=== PATIENT | male | born 1965 | race Caucasian/White ===

== ENCOUNTER 2017-10-12 10:21 | Emergency (ER) | payer BC ==
[~2017-10-12] VITALS: Ht 172.7 cm; Wt 93.3 kg
[~2017-10-12 10:21] MED LIST: AMLO-147 PO; CIPR500T4 PO; IBUP-1542 PO
[2017-10-12 10:22] VITALS: Ht 172.7 cm; Wt 93.3 kg
[2017-10-12] MEDS ORDERED: ALBUTEROL 0.083% (NEB) 2.5 MG/3 ML AMP HHN STA (10:52)
[2017-10-12] MEDS ORDERED: predniSONE 20 MG TAB PO ONE (11:00)
[2017-10-12] MEDS ORDERED: IPRATROPIUM (NEB) 0.5 MG/2.5 ML AMP HHN ONE (11:00)
--- NOTE | 2017-10-12 11:06 | RADRPT ---
PROCEDURE: XR Chest. CLINICAL INDICATION: Cough and shortness of breath. TECHNIQUE: Single frontal view. COMPARISON: None. FINDINGS: The lungs are clear. The heart size is normal. There is no pleural effusion. There is no pneumothorax. IMPRESSION: 1. Normal chest radiograph. RPTAT: QQ .Morgan Trevino MD, MD Date Time Electronically viewed and signed by .Morgan Trevino MD, MD on 10/12/2017 11:06 .R/
[2017-10-12] MEDS ORDERED: PRED20TA PO (11:58)
[2017-10-12] MEDS ORDERED: AZIT250T94 PO (11:58)
[2017-10-12] MEDS ORDERED: ALBU8.5H3 INH (11:58)
--- NOTE | 2017-10-12 12:04 | ERD ---
ER Documentation Chief Complaint Chief Complaint cough , chest congestion x 3 days HPI This 49-year-old male presents with a four-day history of productive cough, wheezing and a history of asthma. Subjective fevers but no measured temperature. Denies any chest pain, vomiting, abdominal pain. He is using his albuterol nebulizer at home without relief. ROS All systems reviewed and are negative except as per history of present illness. Medications Home Meds Active Scripts Albuterol Sulfate* (Proair HFA*) 8.5 Gm Hfa.aer.ad, 2 PUFF INH Q4, #1 INHALER Prov:REBECCA HICKEY MD 10/12/17 Prednisone* (Prednisone*) 20 Mg Tab, 40 MG PO DAILY for 4 Days, TAB Start October 13, 2017 Prov:REBECCA HICKEY MD 10/12/17 Azithromycin* (Zithromax*) 250 Mg Tablet, 250 MG PO .ZPACK DIRECTED, #6 TAB TAKE 500 MG (2 TABS) THE FIRST DAY THEN 250 MG (1 TAB) DAYS 2-5 Prov:REBECCA HICKEY MD 10/12/17 Ibuprofen* (Motrin*) 600 Mg Tab, 600 MG PO Q6, #20 TAB Prov:REBECCA HICKEY MD 08/16/16 Ciprofloxacin Hcl* (Ciprofloxacin Hcl*) 500 Mg Tablet, 500 MG PO BID for 7 Days , TAB Prov:REBECCA HICKEY MD 08/16/16 Ciprofloxacin Hcl* (Ciprofloxacin Hcl*) 500 Mg Tablet, 500 MG PO BID for UTI, Hematuria, for 10 Days, #14 TAB Prov:JADEN NELSON MD 03/24/16 Amlodipine Besylate* (Amlodipine Besylate*) 10 Mg Tablet, 10 MG PO DAILY for 60 Days, #60 TAB Prov:JADEN NELSON MD 03/24/16 Allergies Allergies: Coded Allergies: No Known Allergy (Unverified , 03/19/16) PMhx/Soc History of Surgery: No Anesthesia Reaction: No Hx Neurological Disorder: No Hx Respiratory Disorders: No Hx Cardiac Disorders: Yes (HTN) Hx Psychiatric Problems: No Hx Miscellaneous Medical Probl: Yes (DM) Hx Alcohol Use: No Hx Substance Use: No Hx Tobacco Use: No Smoking Status: Never smoker Physical Exam Vitals Vital Signs Date Time Temp Pulse Resp B/P Pulse Ox O2 Delivery O2 Flow Rate FiO2 10/12/17 11:27 100 22 94 21 10/12/17 10:22 98.2 109 18 176/78 96 Physical Exam Const: [] Alert, [id number]. Head: Atraumatic Eyes: Normal Conjunctiva ENT: Normal External Ears, Nose and Mouth. Neck: Full range of motion..~ No meningismus. Resp: Clear to auscultation bilaterally coarse breath sounds forced wheeze without significant wheeze and no rales are appreciated. No retractions. Cardio: Regular rate and rhythm, no murmurs Abd: Soft, non tender, non distended. Normal bowel sounds Skin: No petechiae or rashes Back: No midline or flank tenderness Ext: No cyanosis, or edema Neur: Awake and alert Psych: Normal Mood and Affect Results 24 hrs Laboratory Tests Test 10/12/17 11:27 Bedside Glucose 170mg/dL Current Medications Medications (Trade) Dose Ordered Sig/Jesika Route PRN Reason Start Time Stop Time Status Last Admin Dose Admin Albuterol (Proventil 0.083% (Neb)) 5 mg ONCE STAT N 10/12/17 10:52 10/12/17 10:54 DC 10/12/17 10:52 Ipratropium Paulina (Atrovent 0.02% (Neb)) 0.5 mg ONCE ONCE N 10/12/17 11:00 10/12/17 11:01 DC 10/12/17 11:00 Prednisone (Prednisone) 40 mg ONCE ONCE PO 10/12/17 11:00 10/12/17 11:01 DC 10/12/17 10:58 Procedures/MDM Chest X-ray 1V Interpreted by me: Soft Tissue: No acute abnormalities Bones: No acute abnormalities Mediastinum/Cardiac Silhouette/Lungs: [No acute abnormalities]. Impression- normal 1 view chest x-ray She presents with worsening URI symptoms and history of asthma without evidence of hypoxemia or respiratory distress. Patient is given albuterol and Atrovent treatment here. He was given prednisone 40 mg by mouth. Accu-Chek was 170. There is given prednisone 40 mg by mouth. Patient was treated with Zithromax, prednisone and continuation albuterol. Patient was counseled on risk of hyperglycemia with prednisone and encouraged to monitor blood sugar drink plenty of fluids. He is advised to follow-up with primary doctor this week return to the ER for any worsening symptoms. The patient was stable with no new complaints during the ER course. Clinically, there is no current evidence to suggest meningitis, sepsis, acute abdomen, pneumonia, acute coronary syndrome , pulmonary embolism, or any other emergent condition appearing to require further evaluation or hospitalization. The patient should certainly return for any new or worsening symptoms per the aftercare instructions. They should otherwise follow-up with her primary care doctor for reevaluation this week. Departure Diagnosis: Primary Impression: Asthma Asthma severity: unspecified severity Asthma persistence: unspecified Asthma complication type: unspecified Qualified Code: J45.909 - Asthma, unspecified asthma severity, unspecified whether complicated, unspecified whether persistent Additional Impression: Bronchitis Condition: Stable Patient Instructions: Bronchitis With Wheezing (Adult) Additional Instructions: X-ray normal. Recheck for new or worsening symptoms or primary care doctor. REBECCA HICKEY MD Oct 12, 2017 12:04
== END 2017-10-12 12:52 | disposition home or self-care (01) ==
LOC: FTE 10:21
DX: J45.909 Unspecified asthma, uncomplicated (principal); J20.9 Acute bronchitis, unspecified; I10 Essential (primary) hypertension; E11.9 Type 2 diabetes mellitus without complications
CPT/HCPCS: 71010; 82962; 94664; J7512; Z7502; Z7610

== ENCOUNTER 2018-02-26 17:49 | Inpatient (IN) | END 2018-03-01 11:08 | disposition home or self-care (01) | DRG 872 ==

== ENCOUNTER 2019-06-10 16:06 | Emergency (ER) | payer BC ==
[~2019-06-10] VITALS: Ht 172.7 cm; Wt 99.4 kg
[~2019-06-10 16:06] MED LIST changes: +ALBU2.5V3 NEB; +ALBU8.5H8 INH; +AMLO-145 PO; -AMLO-147 PO; +AMOX500C2 PO; +ASPI-817 PO; -CIPR500T4 PO; +DOXY100T2 PO; -IBUP-1542 PO; +LISI-471 PO; +METF500T PO; +PANT40TA4 PO; +SERT-165 PO; +SITA100T11 PO
[2019-06-10 16:09] VITALS: Ht 172.7 cm; Wt 99.4 kg
--- NOTE | 2019-06-10 16:46 | ERD ---
ER Documentation Chief Complaint Chief Complaint Pt sent from clinic for BS 450, pt has been out of DM meds HPI 54-year-old male sent from clinic for high blood sugar. He went to his primary care doctor's office to get his Januvia refilled. They noticed that his blood sugar was high so they sent him to the ER. Patient is completely asymptomatic. ROS All systems reviewed and are negative except as per history of present illness. Medications Home Meds Reported Medications Sertraline Hcl* (Sertraline Hcl*) 100 Mg Tablet, 100 MG PO DAILY, #30 TAB 06/10/19 Sitagliptin* (Januvia*) 100 Mg Tablet, 100 MG PO DAILY, #30 TAB 06/10/19 Aspirin* (Aspirin* EC) 81 Mg Tablet.dr, 81 MG PO DAILY, TAB 06/10/19 Discontinued Scripts Amoxicillin* (Amoxicillin*) 500 Mg Cap, 500 MG PO TID for 7 Days, CAP Prov:ANEESH ESCOBAR MD 12/08/18 Albuterol Sulfate* (Albuterol Sulfate* Neb) 0.083%-3 Ml Neb, 2.5 MG NEB Q4 PRN for SHORTNESS OF BREATH, #30 EA Prov:ANEESH ESCOBAR MD 12/08/18 Sitagliptin* (Januvia*) 100 Mg Tablet, 100 MG PO DAILY, #30 TAB 2 Refills Prov:ANEESH ESCOBAR MD 12/08/18 Sitagliptin* (Januvia*) 100 Mg Tablet, 100 MG PO DAILY, #30 TAB 2 Refills Prov:RUCHI BUCK 03/01/18 Metformin Hcl (Glucophage) 500 Mg Tablet, 500 MG PO BID WITH MEALS for 30 Days, #60 TAB 2 Refills Prov:RUCHI BUCK 03/01/18 Pantoprazole* (Pantoprazole*) 40 Mg Tablet., 40 MG PO DAILY@06 for 30 Days, #30 2 Refills Prov:RUCHI BUCK 03/01/18 Lisinopril* (Lisinopril*) 20 Mg Tablet, 20 MG PO DAILY for 30 Days, #30 TAB 2 Refills Prov:RUCHI BUCK 03/01/18 Amlodipine Besylate* (Amlodipine Besylate*) 5 Mg Tablet, 5 MG PO DAILY for 30 Days, #30 TAB 2 Refills Prov:RUCHI BUCK 03/01/18 Doxycycline* (Vibramycin*) 100 Mg Tab, 100 MG PO BID for 8 Days, #16 TAB Prov:RUCHI BUCK 03/01/18 Albuterol Sulfate* (Proair HFA*) 8.5 Gm Hfa.aer.ad, 2 PUFF INH Q4, #1 INHALER Prov:REBECCA HICKEY MD 10/12/17 Allergies Allergies: Coded Allergies: No Known Allergy (Unverified , 06/10/19) PMhx/Soc History of Surgery: No Anesthesia Reaction: No Hx Neurological Disorder: No Hx Respiratory Disorders: No Hx Cardiac Disorders: No Hx Psychiatric Problems: No Hx Miscellaneous Medical Probl: Yes (Diabetes, hypertension) Hx Alcohol Use: No Hx Substance Use: No Hx Tobacco Use: No FmHx Family History: diabetes Physical Exam Vitals Vital Signs Date Temp Pulse Resp B/P (MAP) Pulse Ox O2 O2 Flow FiO2 Time Delivery Rate 06/10/19 98.2 81 15 173/95 100 Room Air 17:23 (121) 06/10/19 98.2 85 16 178/89 100 Room Air 16:40 (118) 06/10/19 99.4 88 16 156/88 100 16:09 (110) Physical Exam Const: No acute distress Head: Atraumatic Eyes: Normal Conjunctiva ENT: Normal External Ears, Nose and Mouth. Neck: Full range of motion. No meningismus. Resp: Clear to auscultation bilaterally Cardio: Regular rate and rhythm, no murmurs Abd: Soft, non tender, non distended. Normal bowel sounds Skin: No petechiae or rashes Back: No midline or flank tenderness Ext: No cyanosis, or edema Neur: Awake and alert Psych: Normal Mood and Affect Result Diagram: 06/10/19 1639 06/10/19 1639 Results 24 hrs Laboratory Tests Test 06/10/19 16:39 06/10/19 17:17 White Blood Count 6.2 10^3/ul Red Blood Count 4.59 10^6/ul Hemoglobin 13.3 g/dl Hematocrit 40.9 % Mean Corpuscular Volume 89.1 fl Mean Corpuscular Hemoglobin 29.0 pg Mean Corpuscular Hemoglobin Concent 32.5 g/dl Red Cell Distribution Width 12.9 % Platelet Count 246 10^3/UL Mean Platelet Volume 10.8 fl Immature Granulocytes % 0.200 % Neutrophils % 65.9 % Lymphocytes % 22.6 % Monocytes % 9.4 % Eosinophils % 1.6 % Basophils % 0.3 % Nucleated Red Blood Cells % 0.0 /100WBC Immature Granulocytes # 0.010 10^3/ul Neutrophils # 4.1 10^3/ul Lymphocytes # 1.4 10^3/ul Monocytes # 0.6 10^3/ul Eosinophils # 0.1 10^3/ul Basophils # 0.0 10^3/ul Nucleated Red Blood Cells # 0.0 10^3/ul Urine Color YELLOW Urine Clarity CLEAR Urine pH 5.0 Urine Specific Gobler 1.021 Urine Ketones NEGATIVE mg/dL Urine Nitrite NEGATIVE mg/dL Urine Bilirubin NEGATIVE mg/dL Urine Urobilinogen NEGATIVE mg/dL Urine Leukocyte Esterase NEGATIVE Stephani/ul Urine Microscopic RBC 2 /HPF Urine Microscopic WBC 0 /HPF Urine Hemoglobin 2+ mg/dL Urine Glucose 3+ mg/dL Urine Total Protein 1+ mg/dl Sodium Level 135 mmol/L Potassium Level 4.3 mmol/L Chloride Level 96 mmol/L Carbon Dioxide Level 30 mmol/L Anion Gap 9 Blood Urea Nitrogen 26 mg/dl Creatinine 1.12 mg/dl Est Glomerular Filtrat Rate mL/min > 60 mL/min Glucose Level 387 mg/dl Calcium Level 9.2 mg/dl Bedside Glucose 337 mg/dL Procedures/MDM EMERGENT LABS AND DIAGNOSTIC STUDIES: Lab Results above were reviewed and interpreted by me. CBC: no anemia or evidence of infection BMP: No UA: no evidence of infection Initial Nursing notes reviewed. Previous Medical Records requested via the Electronic Health Record. EMERGENCY DEPARTMENT COURSE / MEDICAL DECISION MAKING: Patient presents with hyperglycemia. No evidence of ketoacidosis. IV fluids given. There is no emergent medical condition at this time and the patient may be discharged. He will go refill his Januvia as prescribed by his doctor. Patient's blood pressure was elevated (>120/80) but appears stable without evidence of hypertensive emergency or urgency. The patient was counseled about the risks of hypertension and urged to pursue outpatient monitoring and therapy within a week with their primary care physician. Departure Diagnosis: Primary Impression: Hyperglycemia Additional Impression: Noncompliance with medication regimen Condition: Stable EKROGELIO COOK MD Jun 10, 2019 16:46
[2019-06-10 17:23] VITALS: BP 173/95; PULSE 81; RESP 15
== END 2019-06-10 17:31 | disposition home or self-care (01) ==
LOC: E/R 16:06
DX: E11.65 Type 2 diabetes mellitus with hyperglycemia (principal); I10 Essential (primary) hypertension; Z79.82 Long term (current) use of aspirin; Z79.84 Long term (current) use of oral hypoglycemic drugs; Z91.14 Patient's other noncompliance with medication regimen
CPT/HCPCS: 36415; 80048; 81001; 82962; 85025; Z7502; 99283